=== PATIENT | male | born 2000 | race Hispanic/Latino ===

== ENCOUNTER 2019-05-25 19:46 | Emergency (ER) | payer BC ==
[2019-05-25] MEDS ORDERED: Dexamethasone 10 MG/ML VIAL ONE (20:05)
== END 2019-05-25 20:32 | disposition home or self-care (01) ==
LOC: SCSER 19:46
DX: L25.9 Unspecified contact dermatitis, unspecified cause (principal)
CPT/HCPCS: 96372; 99282; J1100